=== PATIENT | male | born 1940 | race Caucasian/White ===

== ENCOUNTER 2016-08-21 22:31 | Inpatient (IN) | payer MEDICARE ==
[~2016-08-21] VITALS: Ht 175.3 cm; Wt 105.7 kg
[~2016-08-21 22:31] MED LIST: ALBU8.5H2 INHALATION; ASPI-973 PO; CELE200C PO; CHOL100045 PO; DIPH50C PO; FLUT9.9S NS; IBUP800T28 PO; LEVO137T2 PO; LIP40 PO; TAMS0.4C98 PO; ZLP10T PO
[2016-08-21 22:49] VITALS: BP 131/53; PULSE 110; RESP 20; O2SAT 97
--- NOTE | 2016-08-21 23:00 | ED.REPORT ---
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 Patient states that he first noticed that he was short of breath, followed by a rapid irregular heart beat. The patient is found to be in atrial fibrillation with RVR by EMS, heart rate in the 120s. The patient denies a history of atrial fibrillation. Patient also admits to a productive cough today with a subjective fever. He denies having any chest pain or a history of prior myocardial infarction. The patient is a former smoker and he admits to sometimes needing to use inhalers at home for his breathing. He denies increased swelling in his legs. Nursing Notes Stated Complaint: SHORT OF BREATH Chief Complaint: Dysrhythmia/Cardiac Nursing Notes Reviewed: Yes Allergies: Coded Allergies: Cat Dander (Verified Allergy, Unknown, unknown, 10/17/15) Dust (Verified Allergy, Unknown, unknown, 10/17/15) Scheduled Albuterol HFA (Proair HFA) 8.5 Gm Hfa.aer.ad 2 PUFFS INHALATION Q4H Aspirin (Aspirin) 81 Mg Tablet 81 MG PO DAILY Atorvastatin (Lipitor) 40 Mg Tablet 40 MG PO DAILY Cholecalciferol (Vitamin D3) (Vitamin D) 1,000 Unit Capsule 3 TAB PO DAILY Levothyroxine (Levothyroxine) 137 Mcg Tablet 137 MCG PO DAILY Tamsulosin (Flomax) 0.4 Mg Capsule 0.8 MG PO DAILY Scheduled PRN Diphenhydramine Hcl (Benadryl) 50 Mg Capsule 50 MG PO Q4-6H PRN PRN PRN DYE-FREE Zolpidem (Ambien) 10 Mg Tablet 0.5 TAB PO HS PRN PRN For Insomnia diphenhydrAMINE HCl (Benadryl) 25 Mg Capsule 25 MG PO HS PRN PRN Insomnia General Time Seen by MD: 22:59 Chief Complaint Other (shortness of breath and heart palpitations) Hx Obtained From: Patient Arrived By: Ambulance Sudden in Onset?: No Onset Occurred: 1 - 4 hours ago Symptom Duration: Since onset Severity: Current: No pain currently Severity: Maximum: No pain Recent Healthcare: No recent doctor visit, No recent hospitalization Similar Sx Previous: No Past Medical History Past Medical History Hypertension Hyperlipidemia Asthma Sleep Apnea on CPAP LV hypertrophy Hemorrhoids Kidney Stones Osteoarthritis Thyroid Disease Past Surgical History left wrist surgery LT ROTATOR CUFF,KNEE RPR,TKA Reports: Appendectomy, Tonsillectomy Smoking History Former Smoker Social History Other Social History: Good social support, , Local resident Occupation [employer] Status Independent Review of Systems Full Review of Systems Constitutional: Reports: Fever Respiratory: Reports: Prod cough, clear, Shortness of breath Cardiovascular: Denies: Chest pain Musculoskeletal: Denies: Extremity pain, Extremity swelling Complete sys rev & neg: except as marked. Physical Exam Vital Signs Vital Signs Date Time Temp Pulse Resp B/P Pulse Ox O2 Delivery O2 Flow Rate FiO2 08/22/16 00:49 102 16 117/53 96 Nasal Cannula 3 08/22/16 00:09 88 20 114/64 95 Nasal Cannula 08/21/16 23:27 83 20 124/53 97 Nasal Cannula 3 08/21/16 22:49 37.5 110 20 131/53 97 Nasal Cannula 3 Initial VS: Reviewed Skin: Warm, Dry, No cyanosis Neurologic: Alert, Oriented, Nonfocal Psychiatric: Mood/affect normal, Behavior normal, Normal thought content General/Constitutional: Awake, Alert, Well hydrated Appearance / Presentation: Positive: Obese Head / Eyes: Atraumatic, Normocephalic, PERRL ENT: Airway patent, Mucous membranes moist Neck: Supple, Full range of motion Respiratory / Chest: Breath sounds NL, No respiratory distress, No rales, No rhonchi wheezes bilaterally Cardiovascular: No murmurs Heart Rate / Rhythm: Positive: Irreg irregular rhythm, Tachycardia Abdomen: Soft, Non-tender, No guarding, No rebound Upper Extremities Upper Extremity / MS: No swelling, No edema Lower Extremity / Pelvis / MS: No swelling, No edema Interpretation & Diagnostics Interpretation & Diagnostics: NEGATIVE FOR INFLUENZA TYPE A AND B Lab Results Interpretation Result Diagram: 08/21/16 2339 08/22/16 0505 Test 08/21/16 23:39 Prothrombin Time 11.1sec (8.1-12.5) Prothromb Time International Ratio 1.04ratio Activated Partial Thromboplast Time 32.4sec (22.8-33.0) Magnesium Level 2.1mg/dL (1.6-2.6) Total Bilirubin 0.3mg/dL (0.0-1.2) Aspartate Amino Transf (AST/SGOT) 17U/L (0-50) Alanine Aminotransferase (ALT/SGPT) 14U/L (0-44) Alkaline Phosphatase 62U/L (25-160) Troponin T 0.010ug/L (0.0-0.011) Pro-B-Type Natriuretic Peptide 174.6pg/mL (0-486) Total Protein 6.3g/dL (6.4-8.4) Albumin 3.6g/dL (3.4-5.0) Thyroid Stimulating Hormone (TSH) 0.637uIU/mL (0.450-4.500) Free Thyroxine 1.46ng/dL (0.82-1.77) Hold Jimenez Top Tube Received (Received) ECG Interpretation ECG Interpretation: Atrial fibrillation, Rate 98 Lateral T wave flattening Atrial fibrillation new compared to prior EKG on 10/14/2015 Time: 23:38 Interpreted by: ED physician X-Ray Chest Interpretation Chest Xray Interpretation: Impression: Granulomas and honey combing left lung base. Changes consistent with interstitial lung disease. No acute process. View: Portable Interpretation / Wet Read by: Wet read ED physician Re-Eval/Medical Decision Med Decision/Clinical Course 76-year-old presents with sudden onset of shortness of breath, apparently in the setting of new onset rapid A. fib. No prior cardiac history. Initial enzymes negative. He does have a history of asthma and has responded to albuterol and DuoNeb here. He is intermittently responded to aliquots of diltiazem. He is admitted now to the medicine service for completion of rule out protocol, rate control, and echocardiogram in the a.m. Source of Hx: Old records Time of Eval: 00:46 Patient Status: Condition improved Re-Evaluation/Progress Note: Rechecked the patient to discuss the results of his lab, EKG, and chest x-ray. Patient's rate continues to be rapid and it is suggested that he be admitted to the hospital for Diltiazem drip. Patient understands and agrees with this plan. All questions were addressed. Consultation : Referral / Consult Name: Jordan Oden MD Consulted With: Hospitalist Call Returned at: 00:58 Allied Health Teacher: Will see patient, Agrees with eval, Agrees with plan, Accepts admit Note: Spoke with Dr. Fuimaono, hospitalist, who agrees to accept admit. Counseled Regarding: Diagnosis, Lab results, Need for admission Discharge & Departure Primary Impression: New onset atrial fibrillation Additional Impression: Shortness of breath Disposition: ADMITTED TO HOSPITAL Discharge Condition All VS Reviewed: Yes Condition: Stable Referrals: Vasquez Salguero DO (PCP) Alyson Attestation Portions of this note were transcribed by Blanca Lopez. I, Dr. Hunter personally performed the history, physical exam and medical decision-making; I reviewed and confirmed the accuracy of the information in the transcribed note. Signed by: Alyson Brown, 08/22/2016 0059 copies to: Vasquez Salguero Christopher W MD Aug 21, 2016 22:59 Blanca Lopez Aug 21, 2016 23:06 (0.0-1.2) Aspartate Amino Transf (AST/SGOT) 17U/L (0-50) Alanine Aminotransferase (ALT/SGPT) 14U/L (0-44) Alkaline Phosphatase 62U/L (25-160) Troponin T 0.010ug/L (0.0-0.011) Pro-B-Type Natriuretic Peptide 174.6pg/mL (0-486) Total Protein 6.3g/dL (6.4-8.4) Albumin 3.6g/dL (3.4-5.0) Thyroid Stimulating Hormone (TSH) 0.637uIU/mL (0.450-4.500) Free Thyroxine 1.46ng/dL (0.82-1.77) Hold Jimenez Top Tube Received (Received) ECG Interpretation ECG Interpretation: Atrial fibrillation, Rate 98 Lateral T wave flattening Atrial fibrillation new compared to prior EKG on 10/14/2015 Time: 23:38 Interpreted by: ED physician X-Ray Chest Interpretation Chest Xray Interpretation: Impression: Granulomas and honey combing left lung base. Changes consistent with interstitial lung disease. No acute process. View: Portable Interpretation / Wet Read by: Wet read ED physician Re-Eval/Medical Decision Source of Hx: Old records Time of Eval: 00:46 Patient Status: Condition improved Re-Evaluation/Progress Note: Rechecked the patient to discuss the results of his lab, EKG, and chest x-ray. Patient's rate continues to be rapid and it is suggested that he be admitted to the hospital for Diltiazem drip. Patient understands and agrees with this plan. All questions were addressed. Consultation : Referral / Consult Name: Jordan Oden MD Consulted With: Hospitalist Call Returned at: 00:58 Allied Health Teacher: Will see patient, Agrees with eval, Agrees with plan, Accepts admit Note: Spoke with Dr. Oden, hospitalist, who agrees to accept admit. Counseled Regarding: Diagnosis, Lab results, Need for admission Discharge & Departure Primary Impression: New onset atrial fibrillation Additional Impression: Shortness of breath Disposition: ADMITTED TO HOSPITAL Discharge Condition All VS Reviewed: Yes Condition: Stable Referrals: Vasquez Salguero DO (PCP) Dimasibcaden Attestation Portions of this note were transcribed by Blanca Lopez. I, Dr. Hunter personally performed the history, physical exam and medical decision-making; I reviewed and confirmed the accuracy of the information in the transcribed note. Signed by: Alyson Brown, 08/22/2016 0059 copies to: Vasquez Salguero Christopher W MD Aug 21, 2016 22:59 Blanca Lopez Aug 21, 2016 23:06
[2016-08-21] MEDS ORDERED: 0.9% Sodium Chloride 1,000 ML IV ONE (23:04)
[2016-08-21] MEDS: Diltiazem 5 mg/mL 5 mL Inj IVPUSH PRN ×2 (23:17→23:40)
[2016-08-21 23:27] VITALS: BP 124/53; PULSE 83; RESP 20; O2SAT 97
[2016-08-22] VITALS (10 sets, daily range): BP systolic 103–134; BP diastolic 50–73; PULSE 69–102; RESP 16–25; O2SAT 94–97
[2016-08-22 00:05] LABS: BASOPHILS % (AUTO) 0.5 % (0-3); EOSINOPHILS % (AUTO) 2.7 % (0-5); INR 1.04 ratio; MONOCYTES % (AUTO) 10.6 % (4-12); Mean Corpuscular Hemoglobin 29.2 pg (27.0-35.0); Mean Corpuscular Volume 87.4 fL (81-100); NEUTROPHILS % (AUTO) 71.1 % (40-74); Platelet Count 186 bil/L (150-400)
[2016-08-22 00:23] LABS: TROPONIN T 0.01 ug/L (0.0-0.011)
[2016-08-22 00:34] LABS: Magnesium 2.1 mg/dL (1.6-2.6)
[2016-08-22] MEDS ORDERED: Dexamethasone Inj 10 MG in 0.9% Sodium Chloride-Pha MIX 50 ML IV ONE (00:45)
[2016-08-22] MEDS ORDERED: Alum-Mag Hydrox-Simeth 30 mL Suspension PO PRN (02:00)
[2016-08-22] MEDS ORDERED: Polyethylene Glycol (PEG) 17 Gm Powder PO PRN (02:00)
[2016-08-22] MEDS ORDERED: Ondansetron 2 mg/mL 2 mL Inj IVPUSH PRN (02:00)
[2016-08-22] MEDS: Diltiazem Inj 125 MG in 0.9% Sodium Chloride 100 ML, Pharmacy To Mix 1 EA IV SCH ×2 (02:30→23:36)
--- NOTE | 2016-08-22 02:35 | PCM.HPMED ---
Subjective Date of Service Aug 22, 2016 Primary Provider: Admitting Physician: Primary Care Physician: Vasquez Salguero DO Attending Physician: Chief Complaint: SOB, palpitations History of Present Illness: Mr. Valdez is a 76 year old male with history of CAD, hyperlipidemia, hypertension, asthma, EDD on CPAP, and asthma who presented to the ED via EMS after feeling increasingly short of breath and having heart palpitations. He reports feeling short of breath around 1400 this afternoon, but it got worse throughout the day where he called EMS, who found him to be in atrial fibrillation with RVR and a rate in the 120's. He denies a history of atrial fibrillation or HI, but reports a 1 month history of intermittent episodes of extreme fatigue. He reports 2-3 days of productive cough, congestion, wheezing, and subjective fevers but denies any chest pain, chills, myalgias or nausea/ vomiting. He has only been using his inhaler sparingly these last few days for his SOB. He denies any peripheral swelling, orthopnea, or HWANG prior to this past month. In the ED, he was given Diltiazem 10mg IV push, which brought his rate down to the 80s, but only last a few hours. He also received 10 mg of Dexamethasone to improve his wheezing and dyspnea. His CBC and CMP were reassuring. PCP Dr. Salguero Review of Systems: 12 Point ROS negative except as stated in HPI Allergies Coded Allergies: Cat Dander (Verified Allergy, Unknown, unknown, 10/17/15) Dust (Verified Allergy, Unknown, unknown, 10/17/15) Home Medications Scheduled Albuterol HFA (Proair HFA) 8.5 Gm Hfa.aer.ad 2 PUFFS INHALATION Q4H Aspirin (Aspirin) 81 Mg Tablet 81 MG PO DAILY Atorvastatin (Lipitor) 40 Mg Tablet 40 MG PO DAILY Cholecalciferol (Vitamin D3) (Vitamin D) 1,000 Unit Capsule 2,000 UNIT PO DAILY Fluticasone Propionate (Flonase Allergy Relief) 50 Mcg/Actuation Hyndman.susp 9.9 ML NS DAILY Levothyroxine (Levothyroxine) 137 Mcg Tablet 137 MCG PO DAILY Tamsulosin (Flomax) 0.4 Mg Capsule 0.4 MG PO DAILY Scheduled PRN Celecoxib (Celebrex) 200 Mg Capsule 200 MG PO DAILY PRN PRN prn Diphenhydramine Hcl (Benadryl) 50 Mg Capsule 50 MG PO Q4-6H PRN PRN PRN DYE-FREE Ibuprofen (Ibuprofen) 800 Mg Tablet 800 MG PO TID PRN PRN For Pain Zolpidem (Ambien) 10 Mg Tablet 10 MG PO HS PRN PRN For Insomnia PMH Coronary artery disease (w/ LV hypertrophy) Hypertension Hyperlipidemia Asthma Sleep Apnea on CPAP Hemorrhoids Kidney Stones Osteoarthritis Thyroid Disease Surgical History Left wrist surgery LT ROTATOR CUFF,KNEE RPR,TKA Appendectomy Tonsillectomy Social History Occupation: [employer] Hx Alcohol Use: No Hx Substance Use: No Hx Tobacco Use: No Smoking Status: Former Smoker Living Arrangement: with Family Exam Vital Signs Vital Sign - Last Date Time Temp Pulse Resp B/P Pulse Ox O2 Delivery O2 Flow Rate FiO2 08/22/16 00:49 102 16 117/53 96 Nasal Cannula 3 08/21/16 22:49 37.5 Intake and Output 08/21/16 08/21/16 08/22/16 Cumulative From/Thru 15:00 23:00 07:00 08/21/16 22:49 - 08/21/16 23:24 Intake Total 1000 ml 1000 ml Output Total 300 ml 300 ml Balance 700 ml 700 ml Intake IV Total 1000 ml 1000 ml Output Urine Total 300 ml 300 ml Exam General - Age appropriate male lying comfortably in NAD. HEENT - PERRLA, EOMI. Membranes pink and moist. Neck - Supple with full ROM, no JVD. Cardiac - Irregularly irregular rhythm, tachycardic, no m/r/g. No carotid bruits appreciated. Lungs - Mild rhonchi noted, no wheezing or crackles noted. normal resp effort Abd - Obese, soft, nontender. +BS. No masses or organomegaly. Extremities - No cyanosis, clubbing, or edema. Normal cap refill. Neuro - A&Ox3. CN 2-12 intact. Muscle strength 5/5 in all extremities, reflexes normal throughout. Psych - Normal mood and affect. Appropriate responses. Skin - Warm, dry. No rashes or ecchymosis noted. Lab and Diagnostics Result Diagram: 08/21/16233808/21/162338 12-lead ECG ECG Interpretation: Atrial fibrillation, Rate 98 Lateral T wave flattening Atrial fibrillation new compared to prior EKG on 10/14/2015 Time: 23:38 Interpreted by: ED physician Assessment & Plan Mr. Valdez is a 76 year old male with history of CAD, hyperlipidemia, hypothyroidism, hypertension, asthma, EDD on CPAP, and asthma who presented to the ED via EMS for SOB and palpitations for the past month but acutely worse today. Patient is admitted for management of new onset Afib with RVR. #Atrial Fibrillation with RVR, new onset, POA Multifactorial source, but risk factors include chronic hypertension, recent ill symptoms, and EDD [id number] score of 3, recommend anticoagulation other than daily 81mg ASA Placed on Telemetry for CV monitoring Will continue Diltiazem gtt per protocol to control HR with goal <100. ECHO in AM #CAD, POA Continue ASA 81 #Asthma, POA Improved wheezing after IV Dexamethasone in the ER Accuneb 1.25 mg prn dyspnea #EDD on CPAP, POA Patient's will bring in his CPAP #HTN, POA Patient report he does not take any HTN medications currently, on nextgen, patient was on Cozaar 100mg prior. Consider resuming the Losartan for maximal benefit #Hypothyroidism, POA TSH and T4 values WNL, Continue LT4 #Hyperlipidemia, POA Continue Atorvastatin Tylenol prn pain/fever Restoril prn insomnia Bowel regimen prn constipation Pain Evaluation: Adequate Pain Control VTE Prophylaxis: Sub-Q Heparin (Unfractionated) Resuscitation Status: CPR: Attempt Resuscitation Attending Statement The patient was seen and examined together with Dr. Michaels on 08/22 and I agree with the history, exam and plan as outlined in the note above. Consider Xarelto for patient. Will leave to day team to discuss this option with patient. Check insurance coverage copies to: Vasquez Salguero Hong D DO Aug 22, 2016 01:08 Jordan Oden MD Aug 22, 2016 03:35
--- NOTE | 2016-08-22 05:30 | NUR ---
Admission note Pt was admitted as inpatient to ER #14 approx at 0115. Admission assessment and screening completed. Med-Rec updated. VSS. A-Fib with HR 80s . Diltiazem gtt did not started due to stable HR. Resident DO aware. No new orders at this time. Pt utilized his home CPAP unit overnight. No overt complications noted.
[2016-08-22 05:53] LABS: BASOPHILS % (AUTO) 0.5 % (0-3); EOSINOPHILS % (AUTO) 0.3 % (0-5); MONOCYTES % (AUTO) 3.9 % (4-12); Mean Corpuscular Hemoglobin 29.3 pg (27.0-35.0); Mean Corpuscular Volume 86.9 fL (81-100); NEUTROPHILS % (AUTO) 88.5 % (40-74); Platelet Count 190 bil/L (150-400)
[2016-08-22] MEDS ORDERED: DIPH25CA6 PO (05:56)
[2016-08-22] MEDS: Diltiazem CD 120 mg ER24 Capsule PO SCH (08:12)
[2016-08-22] MEDS: Heparin 5,000 Unit/mL Inj SUBQ SCH ×3 (08:14→21:50)
--- NOTE | 2016-08-22 09:27 | NUR ---
Telemetry Update: Sinus Rhythm Patient has been Afib 80-90s. At 07:45 patient converted to Sinus Rhythm in the 60-80s. MODESTO Owens aware.
--- NOTE | 2016-08-22 10:08 | DRSVH ---
PROCEDURE: X-RAY CHEST ONE VIEW, PORTABLE ([id number]) INDICATIONS: cough, new afib TECHNIQUE: One view of the chest was acquired. COMPARISON: [facility], CR, XR CHEST 2VW, 01/09/2016, 14:20. FINDINGS: Surgical changes and devices: None. Lungs and pleura: No pleural effusions or pneumothorax. Lungs are clear. Mediastinum: Mediastinal contours appear normal. Heart size is normal. Bones and chest wall: No suspicious bony lesions. Overlying soft tissues appear unremarkable. IMPRESSION: No definite acute cardiopulmonary process. Dictated by: Rush David [facility] Interpreted: Yazmin Vicente MD on 08/22/2016 at 10:08 Transcribed by: KEVON on 08/22/2016 at 10:08 Approved by: Yazmin Vicente MD, PhD on 08/22/2016 at 16:55
--- NOTE | 2016-08-22 11:56 | NUR ---
Social Work Note Initial Assessment: D/A: EMR reviewed, SW met with Pt at bedside to explain role and to discuss discharge planning. The Pt is a 76 y/o male that was admitted under observation status on 08/22/2016 for new onset JACOB dyspnea COPD according to EMR. Readmission score is not listed. The Pt has [employer] Medicare insurance and denies any LTC or VA benefits. The Pt's PCP is MD Vasquez Salguero. The Pt lives in [place] with his , daughter, and son-in-law on his five acre property. The Pt is independent at baseline, continues to drive, is not a caregiver, and only occasionally uses his cane and/or walker when necessary. It was noted in his H&P that the Pt does have a home CPAP machine. The Pt has no SNF history but has utilized HH previously for his left knee. He is currently participating in OPPT for this same knee. The Pt's DPOA is his and stated that the hospital should have a copy. An additional copy was requested. The Pt's will transport him home after discharge. SW will continue to follow for possible HH. Plan: Anticipated discharge home when medically stable with to provide transportation. SW will continue to follow for possible HH. CHANNING Escobedo MSW Addendum: 08/22/16 at 1159 by HECTOR DUKE Amended: Links added.
--- NOTE | 2016-08-22 13:18 | DRSVH ---
[facility] [address] [place] [address] Echocardiogram Report Name: ALY EPPERSON RStudy Date: 08/22/2016 Height: 69 in Hospital Exam Location: [facility] Weight: 236 lb Gender: Male BSA: 2.2 m2 : 1940 Age: 76 yrs BP: 103/71 mmHg Reason For Study: NEW ONSET A-FIB Ordering Physician: Performed By: Landen Esposito Referring Physician: ELIZABETH RAMOS Interpretation Summary 1. Normal left ventricular size with mild proximal septal thickening, and normal systolic function with an estimated EF of 60-65%. 2. Upper limits of normal right ventricular size with normal systolic function. 3. No evidence for significant valvular pathology Incidental finding of a large hepatic cyst (clinical correlation recommended) Procedure: A two-dimensional transthoracic echocardiogram with color flow and Doppler was performed. The study quality was technically adequate. There is no prior echocardiogram noted for this patient. The patient was in normal sinus rhythm during the exam. Left Ventricle: The left ventricle is normal in size. There is mild proximal septal thickening noted. The ejection fraction is estimated to be 60 -65%. No obvious wall motion abnormalities. Right Ventricle: Upper limits of normal size. The right ventricular systolic function is normal. Atria: Borderline left atrial enlargement. The right atrium is normal in size. No color doppler evidence for an ASD. Mitral Valve: Leaflets appear thin with normal excursion. There is no mitral regurgitation noted. Aortic Valve: The aortic valve is trileaflet. The aortic valve opens well. No aortic regurgitation is present. Tricuspid Valve: The tricuspid valve leaflets are thin and pliable. No tricuspid regurgitation. Pulmonic Valve: The pulmonic valve is not well seen, but is grossly normal. There is mild pulmonic regurgitation. Great Vessels: The aortic root is normal size. The ascending aorta is moderately enlarged. The IVC is of normal diameter and collapses greater than 50% with a sniff. This suggests a low right atrial pressure of 3 mm Hg. Pericardium/ Pleura There is no pericardial effusion. There is no pleural effusion. MMode/2D Measurements & Calculations LVIDd: 4.8 cm RA long axis: 5.2 cm LVOT diam: 2.1 cm LVIDs: 3.3 cm LA A2 area: 22.3 cm AoV Opening FS: 30.9 % LA A4 area: 19.6 cm RA area: 15.4 cm EPSS: 0.81 cm LA length (vol) RA vol: 38.8 ml Ao root diam IVSd: 1.2 cm RA : 17.5 ml/m2 LVPWd: 1.1 cm LA vol: 68.7 ml asc Aorta Diam LA vol index Ao Arch Diam (Prox : 31.0 ml/m2 Trans): 2.8 cm EDV(MOD-sp2) LV pugh. diameter/BSA LV sys. diameter/BSA TAPSE: 2.7 cm : 124.1 ml (cm/m^2): 2.2 (cm/m^2): 1.5 Doppler Measurements & Calculations Ao V2 max: 149.3 cm/secMV E max jim MV E/A: 0.55 PA V2 max Ao max P.9 mmHg : 52.0 cm/sec Med Peak E' Jim : 81.9 cm/sec Ao mean P.3 mmHg MV A max jim PA mean PG LVOT Max Jim : 93.7 cm/sec E/E' med: 9.1 : 1.4 mmHg : 104.5 cm/sec Lat Peak E' Jim GONZALES(I,D): 2.7 cm E/E' lat: 10.5 sev ratio: 0.74 E/e' average: 9.8 Pulm A Revs Dur MV dec time: 0.26 sec Ao V2 mean LV V1 max PG PA V2 mean : 97.4 cm/sec : 55.8 cm/sec Ao V2 VTI: 28.3 cmLV V1 VTI: 21.1 cm ABEL pr(Accel) : 43.2 mmHg GONZALES(V,D): 2.5 cm2 GONZALES indexed to BSA (cm^2/m^2): 1.2 Reading Physician:01:17 PM
--- NOTE | 2016-08-22 13:20 | NUR ---
Transfer to [facility] Pt transfered to [facility], room 2004 with all belongings from ED. Pt has denied any pain or discomfort all shift. VSS. Tele afib in the 80's early this am, converted to SR at 0745. Pt calm and coop with care, ambulating in the hallway with steady gait. Report given to Timoteo Bradford RN.
--- NOTE | 2016-08-22 13:51 | NUR ---
Admit to [facility] Pt admitted to room 2004. Report received from Rody Bradford RN. Pt transported in bed. Telemetry placed and tech notified. Pt SR 70s. Pt denies chest pain and SOB at rest. Stated that last time he got up he felt weak and lightheaded. Pt oriented to unit/call light/bed controls. and daughter at bedside.
--- NOTE | 2016-08-22 14:50 | NUR ---
Case Management: LAN and Medicare Part D pamphlet given and explained at 14:35. Amee HERNDON RN
--- NOTE | 2016-08-22 19:03 | PCM.PNMED ---
Subjective Date of Service Aug 22, 2016 Bri Xie reports that his palpitations and dyspnea have resolved. He converted to Normal sinus rhythm this morning after having taken diltiazem PO after admission. Exam Vital Signs Vital Sign - Last Date Time Temp Pulse Resp B/P Pulse Ox O2 Delivery O2 Flow Rate FiO2 08/22/16 16:00 Supplement Oxygen CPAP/BIPAP 08/22/16 11:36 36.5 90 18 128/73 94 08/22/16 07:19 2.00 Intake and Output 08/21/16 08/21/16 08/22/16 Cumulative From/Thru 15:00 23:00 07:00 08/21/16 22:49 - 08/22/16 06:51 Intake Total 1000 ml 1000 ml Output Total 800 ml 800 ml Balance 200 ml 200 ml Intake IV Total 1000 ml 1000 ml Output Urine Total 800 ml 800 ml Exam General: Resting comfortably in bed upon my entering the room. Awake, alert, and oriented. No acute distress. Cooperative HEENT: PERRLA, EOMI. Mucus membranes moist. Cardiac: RRR without murmur, rub, or gallop. No JVD Lungs: Good inspiratory effort. Mild rhonchi noted, no wheezing or crackles noted. Abdomen: Normoactive bowel tones. Obese, soft, nontender. No masses or organomegaly. Extremities: No cyanosis, clubbing, or edema. Normal cap refill. Neuro: Cranial nerves II- X intact. Muscle strength 5/5 in all extremities. Normal speech. Known gait impairment. Psych: Normal mood and affect. Appropriate responses. Lab and Diagnostics Result Diagram: 08/22/16 0505 08/22/16 0505 12-lead ECG ECG Interpretation: Atrial fibrillation, Rate 98 Lateral T wave flattening Atrial fibrillation new compared to prior EKG on 10/14/2015 Time: 23:38 Interpreted by: ED physician Assessment & Plan Mr. Valdez is a 76 year old male with history of CAD and EDD on CPAP, and asthma who presented to the ED via EMS for dyspnea and palpitations for the past month which acutely worsened. Patient is admitted for management of new onset Atrial fibrillation with RVR. 1. Atrial Fibrillation with RVR, new onset, converted to NSR - He has numerous risk factors - Echo without thrombus present - [id number] score of 3, recommend anticoagulation. He does not want warfarin and has a hx of falls. - Telemetry for CV monitoring - Oral diltiazem - Will monitor for 24hours prior to discharge 2. Coronary artery disease - Continue Aspirin 81mg daily 3. Asthma, POA -Improved wheezing after IV Dexamethasone in the ER -Accuneb 1.25 mg prn dyspnea 4. Obstructive sleep apnea on CPAP, present on admission -Home CPAP use 5. Hypertension, POA - Monitor 6. Hypothyroidism, POA -TSH and T4 values are normal - Continue home dosing of levothyroxine 7. Hyperlipidemia, POA - Continue Atorvastatin qHS Tylenol prn pain/fever Restoril prn insomnia Bowel regimen prn constipation Dispo: Anticipate discharge in the morning VTE Prophylaxis: Sub-Q Heparin (Unfractionated) Resuscitation Status: CPR: Attempt Resuscitation Time spent 30 minutes Attending Statement I have seen and examined patient at bedside in addition to directly supervising care provided by resident physician. I agree with above documentation. For rate control, anticipate transition to Metoprolol prior to discharge Regarding anticoagulation, this was discussed with patient who is not certain if he wishes to begin this type of medication, but is sure he doesnt want to take "any rat poison" . Newer agents reviewed, will determine which may be covered by insurance prior to initiation. Fannie Reynolds DO Aug 22, 2016 18:44 Jorge Luis García DO Aug 23, 2016 07:40
[2016-08-22] MEDS: Fluticasone 0.05% 15 Spray/2 Gm 16 Gm Nasal Spray NASAL SCH (22:45)
--- NOTE | 2016-08-22 23:29 | NUR ---
ENT/CPAP Pt A&Ox3, independent in room, saline locked, RA, vitals stable, denies pain at this time. Pt ok'd to be removed from tele for a quick shower before bed. Pt requested ambien for insomnia and a new order for flonase for nasal congestion. Pt cooperative with care, CPAP on for sleep, no other issues noted at this time.
[2016-08-23] VITALS (12 sets, daily range): BP systolic 104–138; BP diastolic 72–90; PULSE 66–105; RESP 16–24; O2SAT 94–99
[2016-08-23 08:29] LABS: BASOPHILS % (AUTO) 0.2 % (0-3); EOSINOPHILS % (AUTO) 0.4 % (0-5); MONOCYTES % (AUTO) 12.6 % (4-12); Mean Corpuscular Hemoglobin 29.6 pg (27.0-35.0); Mean Corpuscular Volume 86.6 fL (81-100); NEUTROPHILS % (AUTO) 78.6 % (40-74); Platelet Count 184 bil/L (150-400)
[2016-08-23 08:55] LABS: TROPONIN T 0.01 ug/L (0.0-0.011)
[2016-08-23] MEDS: Fluticasone 0.05% 15 Spray/2 Gm 16 Gm Nasal Spray NASAL SCH ×2 (09:08→22:23)
[2016-08-23] MEDS: Diltiazem CD 120 mg ER24 Capsule PO SCH (09:08)
[2016-08-23] MEDS: Heparin 5,000 Unit/mL Inj SUBQ SCH ×3 (09:09→23:53)
--- NOTE | 2016-08-23 10:03 | NUR ---
Social Work: Readiness for Discharge D: Pt discussed in am rounds. pt may be ready for discharge home today pending MD. HEEL NAIL RASPER met with pt at bedside SW role explained. Discharge plan reviewed with pt who states he is eager to go home and that he has no concerns about d/c home. HEEL NAIL RASPER completed reassessment. Pt lives at home with his spouse and is I at baseline. Pt has been I during admission and was sitting at EOB during assessment. HEEL NAIL RASPER provided pt with case management contact information. A: Pt who is I at baseline. P: Anticipate pt to discharge home with no sw needs once medically stable; HEEL NAIL RASPER to continue to follow. CHANNING Campos
[2016-08-23 10:48] LABS: APPEARANCE,URINE CLEAR (CLEAR,HAZY); COLOR,URINE STRAW (YELLOW); OCCULT BLOOD,URINE SMALL (NEGATIVE); UROBILINOGEN,URINE NORMAL (NORMAL)
[2016-08-23] MEDS ORDERED: guaiFENesin DM 100-10 mg/5 mL 118 mL Syrup PO PRN (10:55)
[2016-08-23] MEDS: Albuterol-Ipratropium 3 mL Inhalation Solution NEB SCH ×3 (11:38→21:56)
--- NOTE | 2016-08-23 16:58 | PCM.PNMED ---
Subjective Date of Service Aug 23, 2016 Subjective Mr. Valdez is a 76 year old male with history of CAD and EDD on CPAP, and asthma who presented to the ED via EMS for dyspnea and palpitations for the past month which acutely worsened. Patient is admitted for management of new onset Atrial fibrillation with RVR. Overnight: Nursing reported no events Today: Patient complaining of poor sleep due to productive cough. Patient stated he still feels like he needs to cough stuff up out of his lungs. Patient denies fever, chills, dizziness, constipation, diarrhea, chills, nausea, vomiting. ROS negative except as mentioned above. Exam Vital Signs Vital Sign - Last Date Time Temp Pulse Resp B/P Pulse Ox O2 Delivery O2 Flow Rate FiO2 08/23/16 05:29 86 08/23/16 03:23 36.3 18 120/84 96 Room Air 08/22/16 07:19 2.00 Intake and Output 08/22/16 08/22/16 08/23/16 Cumulative From/Thru 14:59 22:59 06:59 08/21/16 22:49 - 08/23/16 06:28 Intake Total 350 ml 375 ml 1725 ml Output Total 300 ml 1100 ml Balance -300 ml 350 ml 375 ml 625 ml Intake Oral 350 ml 375 ml 725 ml IV Total 0 ml 1000 ml Output Urine Total 300 ml 1100 ml # Voids 1 1 # Bowel Movements 2 2 Exam General: Resting comfortably in bed upon my entering the room. Awake, alert, and oriented. No acute distress. Cooperative HEENT: PERRLA, EOMI. Mucus membranes moist. Cardiac: RRR without murmur, rub, or gallop. No JVD Lungs: Good inspiratory effort. Mild rhonchi noted, mild diffuse wheezing, no crackles noted. Abdomen: Normoactive bowel tones. Obese, soft, nontender. No masses or organomegaly. Extremities: No cyanosis, clubbing, or edema. Normal cap refill. Neuro: Cranial nerves II- X intact. Muscle strength 5/5 in all extremities. Normal speech. Known gait impairment. Psych: Normal mood and affect. Appropriate responses. IVs and Medications Medications Reviewed: Medications were reviewed in detail Lab and Diagnostics Result Diagram: 08/22/16 0505 08/22/16 0505 Microbiology INFLUENZA A PCR Final 08/23/16-0392 Organism 1 INFLUENZA A H3 INFLUENZA A PCR DETECTED 12-lead ECG ECG Interpretation: Atrial fibrillation, Rate 98 Lateral T wave flattening Atrial fibrillation new compared to prior EKG on 10/14/2015 Time: 23:38 Interpreted by: ED physician Cardiac Echo Impressions Interpretation Summary 1. Normal left ventricular size with mild proximal septal thickening, and normal systolic function with an estimated EF of 60-65%. 2. Upper limits of normal right ventricular size with normal systolic function. 3. No evidence for significant valvular pathology Incidental finding of a large hepatic cyst (clinical correlation recommended) Reading Physician:01:17 PM Assessment & Plan Mr. Valdez is a 76 year old male with history of CAD and EDD on CPAP, and asthma who presented to the ED via EMS for dyspnea and palpitations for the past month which acutely worsened. Patient is admitted for management of new onset Atrial fibrillation with RVR. 1. Atrial Fibrillation with RVR, new onset, converted to NSR - He has numerous risk factors - Echo without thrombus present - [id number] score of 3, recommend anticoagulation. He does not want warfarin and has a hx of falls. Discussed with patient he understands risks. - Telemetry for CV monitoring - Oral diltiazem, titrate as necessary to control heart rate - Continue tele will monitor for 24hours prior to discharge 2. Influenza A, acute, present on admission, ongoing - Initial rapid screen negative, positive on PCR - Start Tamiflu 75 mg for 10 days - Start DuoNeb Q4 - continue to monitor 3. Coronary artery disease, stable - Continue Aspirin 81mg daily - Start Atorvastatin 40 mg daily 3. Asthma, POA -Improved wheezing after IV Dexamethasone in the ER -Accuneb 1.25 mg prn dyspnea 4. Obstructive sleep apnea on CPAP, present on admission -Home CPAP use 5. Hypertension, POA - Monitor 6. Hypothyroidism, POA -TSH and T4 values are normal - Continue home dosing of levothyroxine 7. Hyperlipidemia, POA - Continue Atorvastatin qHS Tylenol prn pain/fever Restoril prn insomnia Bowel regimen prn constipation Dispo: Anticipate discharge in the morning with controlled HR VTE Prophylaxis: Sub-Q Heparin (Unfractionated) Resuscitation Status: CPR: Attempt Resuscitation Attending Statement The patient was seen and examined together with Resident/House-staff on 08/23/16 and I agree with the history, exam and plan as outlined in the note above. MAZIN JOEL DO Aug 23, 2016 06:57 Tao Galarza Aug 24, 2016 17:19
--- NOTE | 2016-08-23 17:25 | NUR ---
Cough Patient c/o productive cough that keeps him up all night. MD aware and PRN guaifenesin ordered and given per MD. Patietnt stated medication "Helped a little".
[2016-08-23] MEDS: guaiFENesin DM 200-20 mg/10 mL Syrup PO PRN (22:23)
[2016-08-23] MEDS: Diltiazem 5 mg/mL 5 mL Inj IVPUSH PRN ×2 (23:43→23:58)
[2016-08-24] VITALS (10 sets, daily range): BP systolic 104–136; BP diastolic 72–93; PULSE 69–96; RESP 17–26; O2SAT 94–96
[2016-08-24] MEDS: Diltiazem 5 mg/mL 5 mL Inj IVPUSH PRN ×2 (00:14→00:33)
[2016-08-24] MEDS: Diltiazem Inj 125 MG in 0.9% Sodium Chloride 100 ML, Pharmacy To Mix 1 EA IV SCH (01:11)
[2016-08-24 02:51] LABS: BASOPHILS % (AUTO) 0.5 % (0-3); EOSINOPHILS % (AUTO) 1.6 % (0-5); MONOCYTES % (AUTO) 16.8 % (4-12); Mean Corpuscular Hemoglobin 29.3 pg (27.0-35.0); Mean Corpuscular Volume 85.7 fL (81-100); NEUTROPHILS % (AUTO) 70.1 % (40-74); Platelet Count 178 bil/L (150-400)
--- NOTE | 2016-08-24 06:22 | NUR ---
Cardiac Pt in Afib with HR 150-160's EKG ordered and MD notified. Orders to give 5mg IVP Diltiazem given and if HR does not improve to start Diltiazem gtt. 5mg administered x4, HR 120's to 130's, Diltiazem gtt started @ 10mL/hr. HR 80's to 100's and increases with activity to 130's 140's, VSS. Pt also upset regarding his care and requesting to speak with his Doctor. Asked the pt to explain what was bothering him and allowed him to vent his feelings. Explained to pt that I would try to help him in any way possible. MD notifed and came to speak with the pt. Pt calmed and was thankful for my understanding and attention to the matters at hand.
[2016-08-24] MEDS: Heparin 5,000 Unit/mL Inj SUBQ SCH ×3 (08:30→23:55)
[2016-08-24] MEDS: Fluticasone 0.05% 15 Spray/2 Gm 16 Gm Nasal Spray NASAL SCH (08:48)
[2016-08-24] MEDS: Diltiazem CD 120 mg ER24 Capsule PO SCH (08:49)
[2016-08-24] MEDS: Albuterol-Ipratropium 3 mL Inhalation Solution NEB SCH ×2 (09:06→09:17)
[2016-08-24] MEDS ORDERED: Ipratropium 0.02% 0.5 mg/2.5 mL Inhalation Solution NEB PRN (09:25)
[2016-08-24] MEDS: predniSONE 20 mg Tablet PO SCH (10:00)
[2016-08-24] MEDS: guaiFENesin DM 200-20 mg/10 mL Syrup PO PRN (12:00)
--- NOTE | 2016-08-24 17:00 | NUR ---
converted back to SR/Prednisone first dose Increased po Dilt ordered; Gtt titrated to off. VVS; up in room independently. See EMR for details. Discussion & teaching today received well by pt; topics A-Fib, prednisone, recovery from Influenza, energy conservation. Pt expressed appreciation & is knowledgeable; states frequent short naps have helped him feel better.
--- NOTE | 2016-08-24 19:06 | PCM.PNMED ---
Subjective Date of Service Aug 24, 2016 Subjective Mr. Valdez is a 76 year old male with history of CAD and EDD on CPAP, and asthma who presented to the ED via EMS for dyspnea and palpitations for the past month which acutely worsened. Patient is admitted for management of new onset Atrial fibrillation with RVR. Overnight: Per nursing note "Pt in Afib with HR 150-160's EKG ordered and MD notified. Orders to give 5mg IVP Diltiazem given and if HR does not improve to start Diltiazem gtt. 5mg administered x4, HR 120's to 130's, Diltiazem gtt started @ 10mL/hr. HR 80's to 100's and increases with activity to 130's 140's , VSS. Pt also upset regarding his care and requesting to speak with his Doctor. Asked the pt to explain what was bothering him and allowed him to vent his feelings. Explained to pt that I would try to help him in any way possible. MD notifed and came to speak with the pt. Pt calmed and was thankful for my understanding and attention to the matters at hand." Today: Seen in room on Diltiazem drip up and walking, without increases in HR above 110, patient noted he felt much better and stated that "I think I was getting too many breathing treatments, at home I only take 1-2 per day if I need them." Patient denies chest pain, dizziness, headache, nausea, vomiting, change in vision. ROS negative except as mentioned above. Exam Vital Signs Vital Sign - Last Date Time Temp Pulse Resp B/P Pulse Ox O2 Delivery O2 Flow Rate FiO2 08/24/16 03:17 37.4 92 18 104/72 94 CPAP 08/22/16 07:19 2.00 Intake and Output 08/23/16 08/23/16 08/24/16 Cumulative From/Thru 15:00 23:00 07:00 08/21/16 22:49 - 08/24/16 06:43 Intake Total 700 ml 457 ml 2882 ml Output Total 1125 ml 2225 ml Balance 700 ml -668 ml 657 ml Intake Oral 700 ml 425 ml 1850 ml IV Total 32 ml 1032 ml Output Urine Total 1125 ml 2225 ml # Voids 1 # Bowel Movements 4 3 9 Exam General: Resting comfortably in bed upon my entering the room. Awake, alert, and oriented. No acute distress. Cooperative HEENT: PERRLA, EOMI. Mucus membranes moist. Cardiac: RRR without murmur, rub, or gallop. No JVD. Patient encouraged to move and walk in room while examined, no HR > 90 noted. Lungs: Good inspiratory effort. Mild rhonchi noted, mild diffuse wheezing, no crackles noted. Abdomen: Normoactive bowel tones. Obese, soft, nontender. No masses or organomegaly. Extremities: No cyanosis, clubbing, or edema. Normal cap refill. Neuro: Cranial nerves II- X intact. Muscle strength 5/5 in all extremities. Normal speech. Known gait impairment. Psych: Normal mood and affect. Appropriate responses. IVs and Medications Medications Reviewed: Medications were reviewed in detail Lab and Diagnostics Result Diagram: 08/24/16 0240 08/24/16 0240 Microbiology INFLUENZA A PCR Final 08/23/16-1352 Organism 1 INFLUENZA A H3 INFLUENZA A PCR DETECTED 12-lead ECG ECG Interpretation: Atrial fibrillation, Rate 98 Lateral T wave flattening Atrial fibrillation new compared to prior EKG on 10/14/2015 Time: 23:38 Interpreted by: ED physician Cardiac Echo Impressions Interpretation Summary 1. Normal left ventricular size with mild proximal septal thickening, and normal systolic function with an estimated EF of 60-65%. 2. Upper limits of normal right ventricular size with normal systolic function. 3. No evidence for significant valvular pathology Incidental finding of a large hepatic cyst (clinical correlation recommended) Reading Physician:01:17 PM Assessment & Plan Mr. Valdez is a 76 year old male with history of CAD and EDD on CPAP, and asthma who presented to the ED via EMS for dyspnea and palpitations for the past month which acutely worsened. Patient is admitted for management of new onset Atrial fibrillation with RVR. 1. Atrial Fibrillation with RVR, new onset, converted to NSR - He has numerous risk factors - Echo without thrombus present - [id number] score of 3, recommend anticoagulation. He does not want warfarin and has a hx of falls. Discussed with patient he understands risks. - Telemetry for CV monitoring - On diltiazem drip, titrated to 10 mg/hr with normal sinus rhythm - D/c'd diltiazem drip, convert patient to oral diltiazem CD 180 mg PO HS, 120 mg PO AM, continue tele monitor for rate control - Continue tele will monitor for 24hours prior to discharge 2. Influenza A, acute, present on admission, ongoing - Initial rapid screen negative, positive on PCR - Start Tamiflu 75 mg for 10 days - Albuterol D/C'd this was likely contributing to difficulty controlling HR with diltiazem ,reassess in AM - Continue Guaifenesin BID consider D/C tomorrow - Ipratropium neb PRN - continue to monitor 3. Coronary artery disease, stable - Continue Aspirin 81mg daily - Start Atorvastatin 40 mg daily 3. Asthma, POA -Improved wheezing after IV Dexamethasone in the ER - Continue Ipratropium PRN as needed 4. Obstructive sleep apnea on CPAP, present on admission -Home CPAP use 5. Hypertension, POA - Monitor 6. Hypothyroidism, POA -TSH and T4 values are normal - Continue home dosing of levothyroxine 7. Hyperlipidemia, POA - Continue Atorvastatin qHS Tylenol prn pain/fever Restoril prn insomnia Bowel regimen prn constipation Dispo: Anticipate discharge in the morning with controlled HR VTE Prophylaxis: Sub-Q Heparin (Unfractionated) Resuscitation Status: CPR: Attempt Resuscitation Time spent 35 min Attending Statement The patient was seen and examined together with Resident/House-staff on 08/24/16 and I agree with the history, exam and plan as outlined in the note above. MAZIN JOEL DO Aug 24, 2016 07:00 Tao Galarza Aug 25, 2016 17:11
[2016-08-24] MEDS ORDERED: Diltiazem CD 180 mg ER24 Capsule PO SCH (21:00)
[2016-08-25 03:19] VITALS: BP 106/67; PULSE 69; RESP 16; O2SAT 94
--- NOTE | 2016-08-25 04:38 | NUR ---
Tele: Restful evening. VSS. pt denies any pain. PRN Ambien given for sleep per pt request- pt sleeping comfortably throughout night. Tele remains SR. Care ongoing.
[2016-08-25 04:41] VITALS: PULSE 73
[2016-08-25] MEDS ORDERED: Diltiazem CD 120 mg ER24 Capsule PO SCH (08:30)
[2016-08-25 09:05] VITALS: BP 126/81; PULSE 77; RESP 20; O2SAT 95
[2016-08-25] MEDS: predniSONE 20 mg Tablet PO SCH (09:17)
[2016-08-25] MEDS: Heparin 5,000 Unit/mL Inj SUBQ SCH (09:18)
[2016-08-25] MEDS: Fluticasone 0.05% 15 Spray/2 Gm 16 Gm Nasal Spray NASAL SCH (09:18)
[2016-08-25 09:52] VITALS: PULSE 78
--- NOTE | 2016-08-25 10:34 | NUR ---
NATY note - Readiness for d/c [facility] met with pt - pt states he is feeling better - anticipates going home today with providing transportation. No other needs identified. Plan: Home with , No needs. GLORIA Diaz
--- NOTE | 2016-08-25 10:34 | NUR ---
EMS COORDINATOR witnessed LAURENCE signature Margi Ortega
[2016-08-25 12:02] VITALS: BP 130/81; PULSE 72; RESP 18; O2SAT 94
[2016-08-25] MEDS ORDERED: OSLT75C PO (13:37)
[2016-08-25] MEDS ORDERED: DILT180C66 PO (13:37)
[2016-08-25] MEDS ORDERED: DILT120C83 PO (13:37)
--- NOTE | 2016-08-25 13:44 | PCM.DIMED ---
Discharge Instructions Date of Service Aug 25, 2016 Dates of Hospitalization Aug 22, 2016 at 01:14 Diet Heart Healthy Activity Limited until seen by PCP Call your provider Fever or Chills, Shortness of breath, Bleeding, Chest pain, Vomitting, Excessive diarrhea, Weakness (unilateral), Other (dizziness, low blood pressure , sudden change in vision, falls) Patient Instructions Call your doctor's office and make an appointment to follow up with your primary doctor in one week at the latest, earlier preferred. Make arrangements with your primary care doctor to discuss optimization of treatment to control Atrial Fibrillation Continue Oseltamivir (Tamiflu) 75 mg once daily for two more days prescription given Continue Diltiazem CD 120 mg by mouth in the morning, and 180 mg by mouth at night. This is an extended release medication DO NOT TAKE TOGETHER AT THE SAME TIME. Monitor your blood pressure,if you experience dizziness with standing, imbalance , or other signs of low blood pressure stop your medication and call your primary doctor immediately Continue home medications as prescribed. If you experience worsening headache, changes in vision, shortness of breath, recurrent falls on anticoagulation medication seek emergency medical care. If you have any questions or concerns please call us at your earliest connivence. Follow-up Provider: Vasquez Salguero DO Follow-up with PCP in: 1 week MAZIN JOEL DO Aug 25, 2016 13:44
--- NOTE | 2016-08-25 15:07 | NUR ---
Discharge Pt discharged at 1510. Pt off floor via ambulation with all of his belongings in the company of the nurse to private vehicle driven by . Pt was provided with prescriptions, education materials on meds, afib and heart healthy diet, and follow up instructions which included a referral to Dr Martin. All pt questions were answered.
--- NOTE | 2016-08-26 10:08 | PCM.DC.MED ---
Discharge Summary Date of Service Aug 26, 2016 Dates of Hospitalization Date of Hospital Admission Aug 22, 2016 at 01:14 Date of Discharge: Aug 25, 2016 Providers: Admitting Physician: Jordan Oden MD Primary Care Physician: Vasquez Salguero DO Attending Physician: Jordan Oden MD Diagnosis at Time of Discharge Diagnosis at Time of Discharge 1. Atrial Fibrillation with RVR, new onset, converted to NSR 2. Influenza A, acute, present on admission, improved 3. Coronary artery disease, stable 3. Asthma, POA, stable 4. Obstructive sleep apnea on CPAP, present on admission 5. Hypertension, POA, controlled 6. Hypothyroidism, POA, stable 7. Hyperlipidemia, POA, stable Consultations Cardiology Procedures ECG 12 Lead ECG Interpretation: Atrial fibrillation, Rate 98 Lateral T wave flattening Atrial fibrillation new compared to prior EKG on 10/14/2015 Time: 23:38 Interpreted by: ED physician Cardiac Echo Impression Interpretation Summary 1. Normal left ventricular size with mild proximal septal thickening, and normal systolic function with an estimated EF of 60-65%. 2. Upper limits of normal right ventricular size with normal systolic function. 3. No evidence for significant valvular pathology Incidental finding of a large hepatic cyst (clinical correlation recommended) Reading Physician:01:17 PM Brief History Copied from H&P "Mr. Valdez is a 76 year old male with history of CAD, hyperlipidemia, hypertension, asthma, EDD on CPAP, and asthma who presented to the ED via EMS after feeling increasingly short of breath and having heart palpitations. He reports feeling short of breath around 1400 this afternoon, but it got worse throughout the day where he called EMS, who found him to be in atrial fibrillation with RVR and a rate in the 120's. He denies a history of atrial fibrillation or DC, but reports a 1 month history of intermittent episodes of extreme fatigue. He reports 2-3 days of productive cough, congestion, wheezing, and subjective fevers but denies any chest pain, chills, myalgias or nausea/ vomiting. He has only been using his inhaler sparingly these last few days for his SOB. He denies any peripheral swelling, orthopnea, or HWANG prior to this past month. In the ED, he was given Diltiazem 10mg IV push, which brought his rate down to the 80s, but only last a few hours. He also received 10 mg of Dexamethasone to improve his wheezing and dyspnea. His CBC and CMP were reassuring." Hospital Course Mr. Valdez is a 76 year old male with history of CAD and EDD on CPAP, and asthma who was admitted from the ED for treatment of dyspnea and palpitations for the past month which acutely worsened. Patient is admitted for management of new onset Atrial fibrillation with RVR. 1. Atrial Fibrillation with RVR, new onset, converted to NSR - He has numerous cardiac risk factors, including hypertension - Echo without thrombus present - [id number] score of 3, recommend anticoagulation. He does not want warfarin and has a hx of falls. Discussed with patient he understands risks. - Started diltiazem drip, titrated to 10 mg/hr with normal sinus rhythm - D/c'd diltiazem drip, convert patient to oral diltiazem CD 180 mg PO HS, 120 mg PO AM, continued to monitor - Monitor SR on tele for 24hours prior to discharge 2. Influenza A, acute, present on admission, improved - Initial rapid screen negative, positive on PCR - Start Tamiflu 75 mg for 10 days - Albuterol D/C'd this was likely contributing to difficulty controlling HR with diltiazem ,reassess in AM - Continue Guaifenesin BID D/C on admission - Ipratropium neb PRN, DC on admission, continue home breathing treatments, Consider discontinuing albuterol home inhaler to optimize HR control 3. Coronary artery disease, stable - Continue Aspirin 81mg daily - Continue Atorvastatin 40 mg daily 3. Asthma, POA, stable -Improved wheezing after IV Dexamethasone in the ER - Continue Ipratropium PRN as needed 4. Obstructive sleep apnea on CPAP, present on admission -Home CPAP use 5. Hypertension, POA - Monitor 6. Hypothyroidism, POA -TSH and T4 values are normal - Continue home dosing of levothyroxine 7. Hyperlipidemia, POA - Continue Atorvastatin qHS Exam Vital Signs (Last) Date Time Temp Pulse Resp B/P Pulse Ox O2 Delivery O2 Flow Rate FiO2 08/25/16 12:02 36.3 72 18 130/81 94 Room Air 08/22/16 07:19 2.00 Exam General: Resting comfortably in bed upon my entering the room. Awake, alert, and oriented. No acute distress. Cooperative HEENT: PERRLA, EOMI. Mucus membranes moist. Cardiac: RRR without murmur, rub, or gallop. No JVD. Patient encouraged to move and walk in room while examined, no HR > 90 noted. Lungs: Good inspiratory effort. Mild rhonchi noted, mild diffuse wheezing, no crackles noted. Abdomen: Normoactive bowel tones. Obese, soft, nontender. No masses or organomegaly. Extremities: No cyanosis, clubbing, or edema. Normal cap refill. Neuro: Cranial nerves II- X intact. Muscle strength 5/5 in all extremities. Normal speech. Known gait impairment. Psych: Normal mood and affect. Appropriate responses. Test 08/21/16 23:39 08/22/16 05:05 08/22/16 08:08 08/23/16 08:00 Prothrombin Time 11.1sec (8.1-12.5) Prothromb Time International Ratio 1.04ratio Activated Partial Thromboplast Time 32.4sec (22.8-33.0) Magnesium Level 2.1mg/dL (1.6-2.6) Total Bilirubin 0.3mg/dL (0.0-1.2) Aspartate Amino Transf (AST/SGOT) 17U/L (0-50) Alanine Aminotransferase (ALT/SGPT) 14U/L (0-44) Alkaline Phosphatase 62U/L (25-160) Pro-B-Type Natriuretic Peptide 174.6pg/mL (0-486) Total Protein 6.3g/dL (6.4-8.4) Albumin 3.6g/dL (3.4-5.0) Thyroid Stimulating Hormone (TSH) 0.637uIU/mL (0.450-4.500) Free Thyroxine 1.46ng/dL (0.82-1.77) Hold Jimenez Top Tube Received (Received) Hemoglobin A1c 5.9% (4.8-5.6) Urine Color Straw (YELLOW) Urine Appearance Clear (CLEAR,HAZY) Urine pH 6.0 (5.0-8.0) Urine Specific [place] 1.015 (1.003-1.035) Urine Protein Negativemg/dL (NEG,TRACE) Urine Glucose (UA) Negativemg/dL (NEGATIVE) Urine Ketones Negativemg/dL (NEGATIVE) Urine Occult Blood Small (NEGATIVE) Urine Nitrite Negative (NEGATIVE) Urine Bilirubin Negative (NEGATIVE) Urine Urobilinogen Normalmg/dL (NORMAL) Urine Leukocyte Esterase Negative (NEGATIVE) Urine RBC 3-10/hpf (0-2) Urine WBC 0-5/hpf (0-5) Urine Epithelial Cells Occasional/hpf (NONE-MOD) Urine Crystals None seen (NONE SEEN) Urine Bacteria None/hpf (NONE-FEW) Urine Hyaline Casts None/lpf (NONE) Urine Granular Casts None seen (NONE SEEN) Urine Waxy Casts None seen (NONE SEEN) Urine Red Blood Cell Casts None seen (NONE SEEN) Urine White Blood Cell Casts None seen (NONE SEEN) Urine Mucus None seen (None Seen) Urine Trichomonas None seen (NONE SEEN) Urine Yeast None (NONE SEEN) Urinalysis Comment None Urine Culture Reflexed Not indicated Troponin T 0.010ug/L (0.0-0.011) Test 08/23/16 08:11 08/24/16 02:40 Hold Urine Received (Received) White Blood Count 9.3th/mm3 (3.8-10.1) Red Blood Count 5.16mil/mm3 (4.40-5.80) Hemoglobin 15.1g/dL (13.8-17.2) Hematocrit 44.2% (41.0-50.0) Mean Corpuscular Volume 85.7fL (81-100) Mean Corpuscular Hemoglobin 29.3pg (27.0-35.0) Mean Corpuscular Hemoglobin Concent 34.2% (32.0-37.0) Red Cell Distribution Width 14.9% (12.3-15.4) Platelet Count 178bil/L (150-400) Neutrophils (%) (Auto) 70.1% (40-74) Lymphocytes (%) (Auto) 10.9% (14-46) Monocytes (%) (Auto) 16.8% (4-12) Eosinophils (%) (Auto) 1.6% (0-5) Basophils (%) (Auto) 0.5% (0-3) Sodium Level 140mEq/L (134-144) Potassium Level 4.3mEq/L (3.5-5.2) Chloride Level 103mEq/L (97-108) Carbon Dioxide Level 22mmol/L (18-29) Blood Urea Nitrogen 23mg/dL (8-27) Creatinine 0.93mg/dL (0.76-1.27) Estimat Glomerular Filtration Rate 84mL/min (>59) Glucose Level 119mg/dL (60-99) Calcium Level 8.8mg/dL (8.5-10.1) Microbiology Results INFLUENZA A PCR Final 08/23/16-1352 Organism 1 INFLUENZA A H3 INFLUENZA A PCR DETECTED Discharge Medications Discharge Medications Albuterol HFA (Proair HFA) 8.5 Gm Hfa.aer.ad 2 PUFFS INHALATION Q4H (Reported) Aspirin (Aspirin) 81 Mg Tablet 81 MG PO DAILY (Reported) Atorvastatin (Lipitor) 40 Mg Tablet 40 MG PO DAILY (Reported) Cholecalciferol (Vitamin D3) (Vitamin D) 1,000 Unit Capsule 3 TAB PO DAILY ( Reported) Diltiazem ER (Cardizem CD) 120 Mg Cap.er.24h 120 MG PO MORNING Prescribed by: MAZIN JOEL DO Diltiazem ER (Cardizem CD) 180 Mg Cap.er.24h 180 MG PO HS Prescribed by: MAZIN JOEL DO Levothyroxine (Levothyroxine) 137 Mcg Tablet 137 MCG PO DAILY (Reported) Oseltamivir Phosphate (Tamiflu) 10 Cap/Pkg Capsule 75 MG PO BID Prescribed by: MAZIN JOEL DO Tamsulosin (Flomax) 0.4 Mg Capsule 0.8 MG PO DAILY (Reported) As needed Zolpidem (Ambien) 10 Mg Tablet 0.5 TAB PO HS PRN PRN For Insomnia (Reported) diphenhydrAMINE HCl (Benadryl) 25 Mg Capsule 25 MG PO HS PRN PRN Insomnia ( Reported) Followup Plan Discharge Diet: Heart Healthy Discharge Activity: Limited until seen by PCP Patient Instructions Call your doctor's office and make an appointment to follow up with your primary doctor in one week at the latest, earlier preferred. Make arrangements with your primary care doctor to discuss optimization of treatment to control Atrial Fibrillation Continue Oseltamivir (Tamiflu) 75 mg once daily for two more days prescription given Continue Diltiazem CD 120 mg by mouth in the morning, and 180 mg by mouth at night. This is an extended release medication DO NOT TAKE TOGETHER AT THE SAME TIME. Monitor your blood pressure,if you experience dizziness with standing, imbalance , or other signs of low blood pressure stop your medication and call your primary doctor immediately Continue home medications as prescribed. If you experience worsening headache, changes in vision, shortness of breath, recurrent falls on anticoagulation medication seek emergency medical care. If you have any questions or concerns please call us at your earliest connivence. Follow-up Provider: Vasquez Salguero DO Follow-up with PCP in: 1 week Time spent 35 min Attending Statement The patient was seen and examined together with Resident/House-staff on 08/25/16 and I agree with the history, exam and plan as outlined in the note above. MAZIN JOEL DO Aug 26, 2016 10:08 Tao Galarza Aug 26, 2016 17:08
[2016-09-28] MEDS ORDERED: DABI150C PO (17:21)
[2016-09-28] MEDS ORDERED: ACET-171 PO (17:21)
[2016-09-28] MEDS ORDERED: FLUT9.9S NS (17:21)
[2016-09-28] MEDS ORDERED: TRAM50TA2 PO (17:21)
== END 2016-08-25 15:10 | disposition home or self-care (01) | DRG 310 ==
LOC: EDBD 22:31 → EDUNIT# 22:31 → SED 22:31 → OFED 08-22 01:14 → OBSVTOIN 08-22 01:14 → PCC 08-22 11:49
PROVIDERS: ADMIT Hospitalist; ATTEND Hospitalist
DX: I48.91 Unspecified atrial fibrillation (principal); J10.1 Influenza due to other identified influenza virus with other respiratory manifestations; I25.10 Atherosclerotic heart disease of native coronary artery without angina pectoris; J45.909 Unspecified asthma, uncomplicated; G47.33 Obstructive sleep apnea (adult) (pediatric); I10 Essential (primary) hypertension; E03.9 Hypothyroidism, unspecified; E78.5 Hyperlipidemia, unspecified; Z87.891 Personal history of nicotine dependence

== ENCOUNTER 2016-10-01 13:35 | Day surgery (SDC) | payer MEDICARE ==
[~2016-10-01] VITALS: Ht 175.3 cm; Wt 105.0 kg
[~2016-10-01 13:35] MED LIST changes: +0.9% Sodium Chloride 1,000 ML IV SCH; +ACET-171 PO; -CELE200C PO; +DABI150C PO; +DILT120C83 PO; +DILT180C66 PO; +DIPH25CA6 PO; -DIPH50C PO; -IBUP800T28 PO; -LIP40 PO; +Sodium Chloride LOK Flush 10 mL Syringe IV PRN; +TRAM50TA2 PO; +fentaNYL-PF 50 mCg/mL 2 mL Inj IVPUSH PRN
[2016-10-01 14:03] VITALS: BP 136/91; PULSE 82; RESP 17; O2SAT 98
[2016-10-01 15:45] VITALS: BP 115/80; PULSE 81; RESP 16; O2SAT 93
[2016-10-01 15:55] VITALS: BP 141/96; PULSE 84; RESP 16; O2SAT 95
[2016-10-01 16:05] VITALS: BP 137/88; PULSE 75; RESP 16; O2SAT 98
--- NOTE | 2016-10-02 01:40 | ENDO ---
[address] [address] ENDOSCOPY PROCEDURE PATIENT: ALY EPPERSON : 1940 MR#: [id number] ADMIT: 10/01/2016 JOB ID: [id number] PRIMARY PROVIDER: Vasquez Salguero DO PROCEDURE: Colonoscopy with hot snare polypectomy. INDICATIONS: A 76-year-old male with a history of colon polyps, returning for surveillance. EQUIPMENT: [id number]. SEDATION: 7 mg Versed and 100 mcg fentanyl. COMPLICATIONS: None identified. BOWEL PREPARATION: Fair, adequate exam. PROCEDURE INFORMATION: After the risks and benefits were explained, written and verbal informed consent was obtained. The patient was brought into the endoscopy suite and placed into the left lateral decubitus position. Sedation was achieved using the above-stated medications with the addition of oxygen via nasal cannula. A digital rectal examination was accomplished and no significant pathology appreciated apart from mild internal hemorrhoids, external hemorrhoids. The scope was introduced into the rectum and advanced under direct visualization to the cecum as identified by the appendiceal orifice and ileocecal valve. The scope was slowly withdrawn to carefully examine the mucosa for any defects or lesions. Multiple direct views were made through the dentate line for exclusion of pathology. The colon was decompressed, the scope removed from the patient who tolerated the procedure well. FINDINGS: In the cecum, there was a large, approximately 2 cm, sessile polypoid structure spreading out over a mild fold. Using the Jumbo snare, we attempted piecemeal polypectomy. The largest piece was in essence removed but the snare would not come all the way through the polyp. There was a persistent fibrous cord that seemed resistant to the snare and would be sucked up into the sheath rather than severed. We, as a consequence, left this component in, ideally to slough off over time. The other two fragments of this polyp were successfully removed with the hot snare and submitted for histopathology. In the rest of the colon, there were numerous other polyps, the largest being perhaps up to 12-13 mm, sessile, removed with hot snare. Several of them were small, perhaps in the 5 mm range. In the jar that was labeled "colon polyps," there were 8 removed. In the rectum, there was one 5-6 mm sessile polyp removed with hot snare. During the case, we used both the Jumbo snare and a standard polypectomy snare. ENDOSCOPIC DIAGNOSES: 1. Multiple colon polyps. 2. Hemorrhoids. RECOMMENDATIONS: 1. Await histopathology. 2. Will hold Pradaxa for one week. 3. Repeat colonoscopy in approximately 3-4 months to survey the area in the cecum.
--- NOTE | 2016-10-04 10:53 | PATH ---
SURGICAL PATHOLOGY Attending Physician:Arthur Jones CASE STATUS: Signed Out PATIENT NAME: ALY EPPERSON PID: [id number] : 1940 DATE COLLECTED:10/01/2016 00:00 SPECIMEN: 1: Colon, Biopsy 2: Colon, Biopsy 3: Rectum, Biopsy CLINICAL HISTORY: 1).CECAL POLYP X1 2).COLON POLYPS X8 3).RECTAL POLYP X1 FINAL DIAGNOSIS: 1.CECAL POLYP: TUBULAR ADENOMA, MULTIPLE FRAGMENTS. 2.COLON POLYPS: TUBULAR ADENOMAS, TWO FRAGMENTS. SESSILE SERRATED ADENOMAS, MULTIPLE FRAGMENTS. 3.RECTAL POLYP: HYPERPLASTIC POLYP. ICD10 CODE D12.0 D12.6 K62.1 GROSS DESCRIPTION: The specimen is received in three formalin filled containers labeled with the patient's name. 1). The specimen is sublabeled "cecal polyp" and consists of 3 portions of tissue which aggregate to 0.6 x 0.6 x 0.4 CM. The specimen is entirely submitted in cassette 1A. 2). The specimen is sublabeled "colon polyps" and consists of multiple portions of tissue which aggregate to 1.5 x 1.0 x 0.6 CM. The specimen is entirely submitted in cassette 2A. 3). The specimen is sublabeled "rectal polyp" and consists of a 0.4 x 0.4 x 0.4 CM portion of tissue which is entirely submitted in cassette 3A. 10/02/2016 DAC MICRO DESCRIPTION: See diagnosis. ICD-9 CODES: CPT CODES: 1: 60399 2: 57786 3: 69720 Electronically Signed Out Sonia Castillo MD [facility] [address], [place] [address] Technical component performed at [facility], [address] [place] [address] Ave[address], [place], [address]
== END 2016-10-01 23:59 | disposition home or self-care (01) ==
LOC: END 13:35
PROVIDERS: ATTEND Internal Medicine Gastroenterology
DX: Z86.010 Personal history of colon polyps (principal); D12.0 Benign neoplasm of cecum; D12.6 Benign neoplasm of colon, unspecified; K62.1 Rectal polyp; K64.8 Other hemorrhoids; K64.4 Residual hemorrhoidal skin tags; Z79.02 Long term (current) use of antithrombotics/antiplatelets
CPT/HCPCS: 45385; 99153; G0500; J2250; J3010; J7030